=== PATIENT | female | born 1990 ===

== ENCOUNTER 2018-04-18 23:54 | Emergency (ER) | payer OTHER ==
[2018-04-19] MEDS ORDERED: Phenylephrine 1% Nasal Spray (15 ml) ONE (00:28)
[2018-04-19 00:37] VITALS: RESP 20; O2SAT 99
--- NOTE | 2018-04-19 02:04 | C.PDOC ---
History Of Present Illness 28 year old female presents to the ED complaining of irritation, itchiness, and redness around injection area on right buttock for one month. Reports she was seen by a doctor in [facility] one month ago and was injected hormonal medications to induce her menstrual cycle. States symptoms have been persistent since coming back. Denies any fever, chills, drainage, or pain. Also complains of oozing bleeding from nose since returning, but worse today, which prompted ED visit. Notes she has tried to apply pressure but it does not help. Denies history of prior epistaxis. Denies going to see a doctor for symptoms until now. Time Seen by Provider: 04/19/18 00:14 Chief Complaint (Nursing): ENT Problem History Per: Patient History/Exam Limitations: None Onset/Duration Of Symptoms: Days, Persistent Current Symptoms Are (Timing): Still Present Past Medical History Reviewed: Historical Data, Nursing Documentation, Vital Signs Vital Signs: Last Vital Signs Temp 98.4 F 04/19/18 00:16 Pulse 76 04/19/18 00:16 Resp 20 04/19/18 00:16 BP 138/88 04/19/18 00:16 Pulse Ox 99 04/19/18 00:16 - Medical History PMH: No Chronic Diseases Surgical History: No Surg Hx Family History: States: No Known Family Hx - Social History Hx Alcohol Use: No Hx Substance Use: No - Immunization History Hx Tetanus Toxoid Vaccination: No Hx Influenza Vaccination: No Hx Pneumococcal Vaccination: No Review Of Systems Constitutional: Negative for: Fever, Chills Skin: Positive for: Other (redness, itchiness, and irritation around injection area of right buttock ) Physical Exam - Physical Exam Appears: Non-toxic, No Acute Distress, Other (no anemic appearance ) Skin: Warm, Dry, Other (erythema to right buttock, no increased heat, no induration, no fluctuance ) Head: Normacephalic Eye(s): bilateral: Normal Inspection Nose: Epistaxis (oozing from left nare, origin site not identified ) Oral Mucosa: Moist Tongue: Normal Appearing Lips: Normal Appearing Teeth: Normal Dentition Gingiva: Normal Appearing Throat: No Other (blood in the pharynx ) Neck: Supple Chest: Symmetrical Cardiovascular: Rhythm Regular Respiratory: Normal Breath Sounds, No Rales, No Rhonchi, No Wheezing Neurological/Psych: Oriented x3, Normal Speech Gait: Steady ED Course And Treatment O2 Sat by Pulse Oximetry: 99 (RA) Pulse Ox Interpretation: Normal Medical Decision Making Medical Decision Making: Patient is afebrile, resting comfortably, and has no shortness of breath. Patient instructed on nose bleeding control. Pt educated on OTC antihistamine medications. Instructed to follow up with OBGYN. Advised to return to the ED if symptoms persist or worsen. Disposition Counseled Patient/Family Regarding: Diagnosis, Need For Followup - Disposition Referrals: Luis Fernando Ruelas MD [Staff Provider] - Di De La Cruz DO [Doctor Osteopathy] - Disposition: HOME/ ROUTINE Disposition Time: 02:02 Condition: STABLE Instructions: Nosebleeds (DC) Forms: [employer] ([employer]) - Clinical Impression Clinical Impression: Allergy injection reaction, Epistaxis not due to trauma - PA / [employer]CHITECT / Resident Statement / has reviewed & agrees with the documentation as recorded. - Scribe Statement The provider has reviewed the documentation as recorded by the Scribe Rose Marie Sandoval All medical record entries made by the Scribe were at my direction and personally dictated by me. I have reviewed the chart and agree that the record accurately reflects my personal performance of the history, physical exam, medi luke decision making, and the department course for this patient. I have also personally directed, reviewed, and agree with the discharge instructions and disposition.
[2018-04-19 02:19] VITALS: BP 128/72; PULSE 80; TEMP 98.2
== END 2018-04-19 02:16 | disposition home or self-care (01) ==
LOC: C.ER 23:54
DX: T78.40XA Allergy, unspecified, initial encounter (principal); T50.995A Adverse effect of other drugs, medicaments and biological substances, initial encounter; Y92.89 Other specified places as the place of occurrence of the external cause; R04.0 Epistaxis